=== PATIENT | male | born 1930 | race Caucasian/White ===

== ENCOUNTER 2016-08-22 19:31 | Emergency (ER) | payer OTHER, MEDICARE ==
[~2016-08-22] VITALS: Ht 172.7 cm; Wt 72.8 kg
[~2016-08-22 19:31] MED LIST: ASPIR 8181 M1 PO; LOSARTAN POTASS50 MG PO; METOPROLOL SUCC50 MG PO; ZOCOR40 MG PO
[2016-08-22 20:10] LABS: HEMATOCRIT 39.3 % (38.0-50.0); MCH 33.4 PG (29.0-34.0); MCHC 34.6 G/DL (30.0-36.0); MCV 96.6 FL (86-99); MEAN PLAT.VOLUME 9.6 uM^3 (9.0-12.4); PLATELET COUNT 296 K/uL (156-360); RBC DIS.WIDTH-CV 12.1 % (11.8-14.6); RBC DIS.WIDTH-SD 43.5 % (39-53); RED BLOOD COUNT 4.07 M/uL (4.00-5.50); WHITE BLOOD COUNT 6.8 K/uL (4.1-10.2)
[2016-08-22 20:23] LABS: CHLORIDE 103 mEq/L (99-109); POTASSIUM 4.4 mEq/L (3.7-5.4); SODIUM 135 mEq/L (136-147)
[2016-08-22 20:25] LABS: GLUCOSE 141 mg/dL (70-99)
[2016-08-22 20:27] LABS: ANION GAP 11 MEQ/L (2-14)
[2016-08-22 20:29] LABS: GFR ESTIMATE (CALCULATED) > 59 mL/min/
[2016-08-22 20:30] LABS: UREA NITROGEN (BUN) 21 mg/dL (9-23)
[2016-08-22 20:33] LABS: TROP-I INTERPRETATION NEGATIVE; TROPONIN-I < 0.01 ng/mL (0.0-0.30)
[2016-08-22 22:18] LABS: TOTAL BILIRUBIN 0.5 mg/dL (0.0-1.0)
[2016-08-22 22:19] LABS: ALKALINE PHOSPHATASE 38 IU/L (3-129)
[2016-08-22 22:22] LABS: DIRECT BILIRUBIN 0.2 mg/dL (0.0-0.3)
[2016-08-22 22:23] LABS: LIPASE 36 U/L (1.0-51.0)
[2016-08-22] MEDS ORDERED: ZOFRAN4 MG PO (23:12)
[2016-08-22 23:34] VITALS: BP 142/59
== END 2016-08-22 23:46 | disposition home or self-care (01) ==
LOC: EME 19:31
DX: R11.0 Nausea (principal); R00.2 Palpitations; I25.10 Atherosclerotic heart disease of native coronary artery without angina pectoris; I10 Essential (primary) hypertension; Z95.1 Presence of aortocoronary bypass graft; Z95.5 Presence of coronary angioplasty implant and graft; Z85.46 Personal history of malignant neoplasm of prostate
CPT/HCPCS: 71020; 76705; 80048; 80076; 83690; 84484; 85027; 93005; 99281; 99283

== ENCOUNTER 2017-03-27 18:42 | Emergency (ER) | payer OTHER, MEDICARE ==
[~2017-03-27] VITALS: Ht 172.7 cm; Wt 71.2 kg
[~2017-03-27 18:42] MED LIST changes: +ZOFRAN4 MG PO
[2017-03-27 19:17] LABS: HEMATOCRIT 41.9 % (38.0-50.0); MCH 33.9 PG (29.0-34.0); MCHC 35.3 G/DL (30.0-36.0); MCV 95.9 FL (86-99); MEAN PLAT.VOLUME 9.3 uM^3 (9.0-12.4); PLATELET COUNT 353 K/uL (156-360); RBC DIS.WIDTH-CV 11.8 % (11.8-14.6); RBC DIS.WIDTH-SD 41.4 % (39-53); RED BLOOD COUNT 4.37 M/uL (4.00-5.50); WHITE BLOOD COUNT 6.7 K/uL (4.1-10.2)
[2017-03-27 19:29] LABS: CHLORIDE 96 mEq/L (99-109); POTASSIUM 4.6 mEq/L (3.7-5.4); SODIUM 131 mEq/L (136-147)
[2017-03-27 19:31] LABS: GLUCOSE 110 mg/dL (70-99)
[2017-03-27 19:32] LABS: ANION GAP 10 MEQ/L (2-14)
[2017-03-27 19:33] LABS: TOTAL BILIRUBIN 0.5 mg/dL (0.0-1.0)
[2017-03-27 19:34] LABS: ALKALINE PHOSPHATASE 67 IU/L (3-129)
[2017-03-27 19:35] LABS: GFR ESTIMATE (CALCULATED) > 59 mL/min/
[2017-03-27 19:36] LABS: UREA NITROGEN (BUN) 17 mg/dL (9-23)
[2017-03-27 21:17] LABS: ADD MIUA? NO; BILIRUBIN NEGATIVE; BLOOD NEGATIVE; COLOR YELLOW ((YELLOW)); GLUCOSE (STRIP) NEGATIVE; KETONES NEGATIVE; LEUKOCYTES NEGATIVE; NITRITE NEGATIVE; PROTEIN (STRIP) NEGATIVE; SPECIFIC GRAVITY 1.013 (1.000-1.030); UCUL ADDED? NO; UROBILINOGEN 0.2 MG/DL (0.2-1.0)
[2017-03-27 21:40] LABS: LIPASE 33 U/L (1.0-51.0)
[2017-03-27] MEDS ORDERED: FLEXERIL10 MG PO (23:34)
[2017-03-27] MEDS ORDERED: LIDODERM 5% P1 PATCH TD (23:34)
[2017-03-27 23:50] VITALS: BP 139/67
== END 2017-03-27 23:50 | disposition home or self-care (01) ==
LOC: EME 18:42
DX: M54.5 Low back pain (principal); G89.29 Other chronic pain; I71.4 Abdominal aortic aneurysm, without rupture; D18.00 Hemangioma unspecified site; M48.54XA Collapsed vertebra, not elsewhere classified, thoracic region, initial encounter for fracture; I10 Essential (primary) hypertension; F41.9 Anxiety disorder, unspecified; I25.10 Atherosclerotic heart disease of native coronary artery without angina pectoris; Z95.1 Presence of aortocoronary bypass graft; Z95.5 Presence of coronary angioplasty implant and graft; Z85.46 Personal history of malignant neoplasm of prostate; Z87.442 Personal history of urinary calculi; Z88.2 Allergy status to sulfonamides
CPT/HCPCS: 74177; 80053; 81003; 83605; 83690; 85027; 99281; 99285